=== PATIENT | male | born 1970 | race Caucasian/White ===

== ENCOUNTER → 2016-09-29 | Outpatient (CLI) | payer OTHER ==
[~2016-09-29] MED LIST: AMBIEN10 MG PO; APIDRA100 UNIT/1 SUB-Q; B COMPLETE1 EACH PO; COLACE100 MG PO; COZAAR100 MG PO; CRESTOR20 MG PO; FLEXERIL10 MG PO; HYGROTON25 MG PO; LANTUS (IN100 UNIT/M SUB-Q; LOPRESSOR25 MG PO; NORCO 5-325 TA1 EACH PO; NORVASC5 MG PO; VITAMIN D-32000 UNI1 PO; WELLBUTRIN XL300 M2 PO
--- NOTE | ~2016-09-29 | PUL ---
[facility] AGE: 46 Y [address] ROOM: [place] [address] LOCATION: [facility] ADMIT DATE: 09/29/2016 Pulmonary DISCHARGE DATE: FAMILY PHYSICIAN: CARY JARQUIN MD ATTENDING PHYSICIAN: CARY JARQUIN NAME OF PROCEDURE: Sleep Study PROCEDURE DATE: 09/29/16 TECH: KATHRIN Guzman TEST #: [facility] – [place], [place]# [id number] TECHNICAL PARAMETERS: The patient was studied using International 10/20 measuring system. While the patient was studied, there was continuous monitoring of EEG (8 leads), EOG (2 leads), EKG (3 leads), submental EMG (3 leads), tibial (4 leads), respiratory inductive plethysmography (RIP) for thoracic and abdominal effort, oral and nasal airflow with a thermocouple and pressure transducer, and oximetry. The field service technician also performed visual and auditory observations noting things like body position, patient's status, breath sounds, artifact, snoring level and patient comments. Continuous sound was monitored using a 2-way speaker system and video monitoring was performed using an infrared camera. Review of the entire study was performed epoch by epoch utilizing a single epoch and multiple epoch capability sleep system. MEDICAL HISTORY: Patient is a 46-year-old overweight gentleman with daytime sleepiness and snoring. SLEEP STAGE SUMMARY: The patient was studied for 487 minutes of which he slept 395 minutes. He fell asleep in 3 minutes and slept for 81% of the night. Sleep architecture revealed a decline in slow wave and REM sleep. RESPIRATORY SUMMARY: Prior to initiating CPAP there were 38 obstructive apneas and 18 hypopneas. For an apnea/hypopnea index 26 events per hour. CPAP was initiated and titrated to 14 cm with good control of the respiratory events. EKG SUMMARY: No significant dysrhythmias were noted. LIMB MOVEMENT SUMMARY: No clinically relevant periodic limb movements were noted. SUMMARY: Obstructive sleep apnea responsive to 14 cm of CPAP. PATIENT'S NAME: CHRISTIANE MATT [facility] AGE: 46 Y [address] ROOM: [place] [address] LOCATION: [facility] ADMIT DATE: 09/29/2016 Pulmonary DISCHARGE DATE: FAMILY PHYSICIAN: CARY JARQUIN MD ATTENDING PHYSICIAN: CARY JARQUIN PLAN: Patient will receive results from the ordering provider. MD ERIN BA /[id number] dtt: 10/06/16 0742 , Murali Irwin dtd: 10/03/16 1537
== END | disposition disaster alternative care site (69) ==
LOC: GSLP 20:21
DX: G47.33 Obstructive sleep apnea (adult) (pediatric) (principal); F51.01 Primary insomnia; Z90.89 Acquired absence of other organs

== ENCOUNTER → 2016-11-20 | Outpatient (CLI) | payer OTHER | END | disposition disaster alternative care site (69) | LOC: GAMB 14:04 | DX: R06.00 Dyspnea, unspecified (principal); R07.9 Chest pain, unspecified; R06.02 Shortness of breath; Z79.84 Long term (current) use of oral hypoglycemic drugs; Z79.4 Long term (current) use of insulin; Z79.899 Other long term (current) drug therapy; Z88.1 Allergy status to other antibiotic agents; Z88.0 Allergy status to penicillin; Z88.8 Allergy status to other drugs, medicaments and biological substances | CPT/HCPCS: A0425; A0427 ==